=== PATIENT | female | born 1970 | race Caucasian/White ===

== ENCOUNTER 2022-10-03 18:04 | Emergency (ER) | payer OTHER ==
[2022-10-03] MEDS ORDERED: Zofran 4 MG/2 ML VIAL IV ONE (18:37)
[2022-10-03] MEDS ORDERED: Sodium Chloride 0.9% 1000 ML 1,000 ML IV STA (18:37)
[2022-10-03] MEDS ORDERED: Hydromorphone 1 mg/ml Injection IV ONE ×2 (18:37→23:10)
--- NOTE | 2022-10-03 18:38 | ERPHSYRPT ---
- History of Present Illness Time Seen by Provider: 10/03/22 18:33 Source: patient, family Exam Limitations: no limitations Patient Subjective Stated Complaint: Cat bite-back/marimar arm pain Triage Nursing Assessment: Patient brought back to ED per w/c and transferred self to bed. Patient A+O X3. Patient's skin pink, warm and dry. Patient states yesterday on 10/02/2022 around 0200 she got up to use the restroom when her 10 year old cat attacked her. Patient has bites to marimar legs, and left hand. Patient states during the attack she stumbled and fell hitting her marimar arms and head. Patient has bruising to marimar arms and bruising to left christian and left eye. Patient complains of pain 10/10. Physician History: pt was bitten by her cat multiple times a few days ago - cat reported has all its shots . SHe fell striking left orbit and also neck, chest and back and abd - Neuro normal. FUndi benign and no eye symtoms reported - no abrasion of cornea seen on opth exam. TM s nl. WOunds cleansed no sign infections feet, hands / arms, nothing to require sutures ; but will need proph AB Augmentin best choice. discussed script with pt and family and that wish to proceed. ABd tender general. SPine l ad c spine tender, chest anterior and ribs tender. Full ROM all ext without sofia tenderness and NV intact distally. discussed risk and benefit with pt and and they wish to proceed with CT scans. Ordered, Labs CBC, UA, CMP, and CTs head,face, nC L spines and CHest /abd . reviewed readings and discussed with pt and family. Timing/Duration: day(s) Severity: moderate Modifying Factors: Improves With: immobilization, movement Associated Symptoms: abdominal pain, loss of appetite, other (chest and spine tenderness and headache) Allergies/Adverse Reactions: acetaminophen [From Tylenol-Codeine #3] Allergy (Unknown, Verified 10/03/22 18:15) codeine [From Tylenol-Codeine #3] Allergy (Unknown, Verified 10/03/22 18:15) shellfish derived Allergy (Unknown, Verified 10/03/22 18:15) adhesive tape Adverse Reaction (Unknown, Verified 10/03/22 18:15) Home Medications: ALPRAZolam 0.25 MG [xanAX 0.25 MG] 0.5 mg PO UD 09/28/22 [History] Albuterol Sulfate [Proair Digihaler] 1 puff IH QID PRN 09/28/22 [History] Bisacodyl 5 mg [Dulcolax 5 mg] 4 tab PO UD 09/28/22 [History] Dicyclomine HCl 20 mg [Bentyl 20 mg] 1 mg PO QID 09/28/22 [History] Diphenhydramine HCl [Benadryl Allergy] 25 mg PO UD 09/28/22 [History] Guaifenesin [Mucinex] 1 tab PO UD 09/28/22 [History] Iron 65 mg PO DAILY 09/28/22 [History] Levothyroxine Sodium 112 Mcg [Synthroid 112 Mcg] 112 mcg PO DAILY 09/28/22 [History] Loratadine 10 mg [Claritin 10 mg] 10 mg PO DAILY 09/28/22 [History] Metoprolol Tartrate 50 mg [Lopressor 50 MG] 50 mg PO BID 09/28/22 [History] Polyethylene Glycol 3350 17 gm [Miralax Powder 17GM PACKET] 1 scoop PO UD 09/28/22 [History] Pregabalin 50 mg [Lyrica 50MG] 50 mg PO BID 09/28/22 [History] Simvastatin 20Mg [Zocor 20Mg] 20 mg PO HS 09/28/22 [History] Tramadol HCl 50 mg [Ultram 50 mg] 50 mg PO BID 09/28/22 [History] Hx Influenza Vaccination/Date Given: No Hx Pneumococcal Vaccination/Date Given: No Immunizations Up to Date: Yes Travel Risk - International Travel Have you traveled outside of the country in past 3 weeks: No - Coronavirus Screening Are you exhibiting any of the following symptoms?: No Close contact with a COVID-19 positive Pt in past 14-21 Days: No - Vaccine Status Have you recieved a Covid-19 vaccination: No - Review of Systems Constitutional: No Fever, No Chills Eyes: No Symptoms Ears, Nose, & Throat: No Symptoms Respiratory: No Cough, No Dyspnea Cardiac: Other (chest wall tenderness), No Chest Pain, No Edema, No Syncope Abdominal/Gastrointestinal: Abdominal Pain, Nausea, Appetite Changes, No Vomiting, No Diarrhea Genitourinary Symptoms: No Dysuria Musculoskeletal: Back Pain, Neck Pain, Fall, Injury Skin: Other (bites), No Rash Neurological: No Dizziness, No Focal Weakness, No Sensory Changes Psychological: No Symptoms Endocrine: No Symptoms Hematologic/Lymphatic: No Symptoms Immunological/Allergic: No Symptoms All Other Systems: Reviewed and Negative - Past Medical History Pertinent Past Medical History: Yes Neurological History: No Pertinent History ENT History: No Pertinent History Cardiac History: No Pertinent History Respiratory History: COPD, Sleep Apnea Endocrine Medical History: No Pertinent History Musculoskeletal History: No Pertinent History GI Medical History: No Pertinent History History: No Pertinent History Psycho-Social History: No Pertinent History Female Reproductive Disorders: No Pertinent History Other Medical History: hx of blood transfusion - Past Surgical History Past Surgical History: Yes Neuro Surgical History: No Pertinent History Cardiac: No Pertinent History Respiratory: No Pertinent History Gastrointestinal: Appendectomy Genitourinary: No Pertinent History Musculoskeletal: No Pertinent History Female Surgical History: No Pertinent History Other Surgical History: thyroidectomy. oopherectomy - Social History Smoking Status: Current every day smoker How long have you smoked: 1 Exposure to second hand smoke: Yes Drug Use: none Patient Lives Alone: No - Nursing Vital Signs Nursing Vital Signs: Initial Vital Signs Temperature 96.9 F 10/03/22 18:18 Pulse Rate 76 10/03/22 18:18 Respiratory Rate 18 10/03/22 18:18 Blood Pressure 179/126 10/03/22 18:18 O2 Sat by Pulse Oximetry 99 10/03/22 18:18 Pain Scale Pain Intensity 5 - Physical Exam General Appearance: no apparent distress, alert Eye Exam: PERRL/EOMI, eyes nml inspection, other (tender ecchymotic left orbit) Ears, Nose, Throat Exam: normal ENT inspection, TMs normal, pharynx normal, moist mucous membranes Neck Exam: normal inspection, supple, full range of motion, limited range of motion, midline tenderness Respiratory Exam: normal breath sounds, lungs clear, airway intact, other (tender chest ant and posterior), No respiratory distress Cardiovascular Exam: regular rate/rhythm, normal heart sounds, normal peripheral pulses Gastrointestinal/Abdomen Exam: soft, normal bowel sounds, tenderness, guarding, No mass Pelvic Exam: deferred Rectal Exam: deferred Back Exam: normal inspection, normal range of motion, No CVA tenderness, No vertebral tenderness Extremity Exam: normal inspection, normal range of motion, pelvis stable Neurologic Exam: alert, oriented x 3, cooperative, normal mood/affect, nml cerebellar function, nml station & gait, sensation nml, No motor deficits, No sensory deficit, No disoriented, No confusion, No intoxicated appearance, No motor weakness, No facial droop, No slurred speech Skin Exam: normal color, warm, dry, No rash Lymphatic Exam: No adenopathy SpO2 Interpretation: normal SpO2: 99 O2 Delivery: Room Air - Course Nursing assessment & vital signs reviewed: Yes - CT Exams Abdomen/Pelvis CT Interpretation: Tele-radiologist Report, No appendicitis Head CT Interpretation: Tele-radiologist Report, Other (sinus mastoid dx ) Cervical Spine CT Interpretation: Tele-radiologist Report, No Fracture Lumbar Spine CT Interpretation: Tele-radiologist Report, Fracture (L1 compression) Chest CT Interpretation: Tele-radiologist Report, Other (CAD, Right clav Fx) Ordered Tests: Active Orders 24 hr Category Date Time Status IV Insertion STAT Care 10/03/22 18:37 Active ABDOMEN AND PELVIS W/0 CONTRAS [CT] Stat Exams 10/03/22 18:33 Completed CERVICAL SPINE WO CONTRAST [CT] Stat Exams 10/03/22 18:35 Completed CHEST WITHOUT CONTRAST [CT] Stat Exams 10/03/22 18:34 Completed FACIAL BONES WO CONTRAST [CT] Stat Exams 10/03/22 18:35 Completed HEAD WITHOUT CONTRAST [CT] Stat Exams 10/03/22 18:34 Completed LUMBAR SPINE W/O [CT] Stat Exams 10/03/22 18:36 Completed CBC W DIFF Stat Lab 10/03/22 18:57 Completed CMP Stat Lab 10/03/22 18:57 Completed CULTURE,URINE Stat Lab 10/03/22 20:05 Received HCG QUALITATIVE,SERUM Stat Lab 10/03/22 18:57 Completed UA W/RFX UR CULTURE Stat Lab 10/03/22 20:05 Completed Medication Summary Discontinued Medications Generic Name Dose Route Start Last Admin Trade Name Freq PRN Reason Stop Dose Admin Amoxicillin/Clavulanate Potassium 875 mg 10/03/22 23:02 Amox Tr/Potassium Clavulanate 875 Mg Tablet PO 10/03/22 23:03 STAT ONE Diphtheria/Tetanus/Acell Pertussis 0.5 ml 10/03/22 18:44 10/03/22 19:11 Tdap --Diph,Pertuss(Acell),Tet Vac/Pf 0.5 Ml Vial IM 10/03/22 18:45 0.5 ml .ONCE ONE Administration Diphtheria/Tetanus/Acell Pertussis Confirm 10/03/22 19:02 Tdap --Diph,Pertuss(Acell),Tet Vac/Pf 0.5 Ml Vial Administered 10/03/22 19:03 Dose 0.5 ml IM .STK-MED ONE Hydromorphone HCl 1 mg 10/03/22 18:37 10/03/22 19:10 Hydromorphone 1 Mg/1ml Inj 1 Mg/Ml Syringe IV 10/03/22 18:38 1 mg STAT ONE Administration Hydromorphone HCl Confirm 10/03/22 19:01 Hydromorphone 1 Mg/1ml Inj 1 Mg/Ml Syringe Administered 10/03/22 19:02 Dose 1 mg .ROUTE .STK-MED ONE Sodium Chloride 1,000 mls @ 999 mls/hr 10/03/22 18:37 10/03/22 20:24 Sodium Chloride 0.9% 1000 Ml IV 10/03/22 19:37 Infused .Q1H1M STA Infusion Sodium Chloride Confirm 10/03/22 19:01 Sodium Chloride 0.9% 1000 Ml Administered 10/03/22 19:02 Dose 1,000 mls @ ud .ROUTE .STK-MED ONE Ketorolac Tromethamine 60 mg 10/03/22 23:00 10/03/22 23:10 Ketorolac Tromethamine 30 Mg/Ml Inj IM 10/03/22 23:01 Not Given STAT ONE Ondansetron HCl 4 mg 10/03/22 18:37 10/03/22 19:07 Ondansetron Hcl 4 Mg/2 Ml Vial IV 10/03/22 18:38 4 mg STAT ONE Administration Ondansetron HCl Confirm 10/03/22 19:01 Ondansetron Hcl 4 Mg/2 Ml Vial Administered 10/03/22 19:02 Dose 4 mg .ROUTE .STK-MED ONE Lab/Rad Data: Laboratory Result Diagrams 10/03/22 18:57 10/03/22 18:57 Laboratory Results 10/03/22 10/03/22 10/03/22 Range/Units 20:05 18:57 18:57 WBC (4.0-10.5) x10^3/uL RBC (4.1-5.4) x10^6/uL Hgb (12.0-16.0) g/dL Hct (35-47) % MCV (78-100) fL MCH (26-32) pg MCHC (32-36) g/dL RDW (11.5-14.0) % Plt Count (150-450) x10^3/uL MPV (7.5-11.0) fL Gran % (36.0-66.0) % Immature Gran % (Auto) (0.00-0.4) % Nucleat RBC Rel Count (0.00-0.1) % Eos # (Auto) (0-0.5) x10^3/uL Immature Gran # (Auto) (0.00-0.03) x10^3u/L Absolute Lymphs (auto) (1.0-4.6) x10^3/uL Absolute Monos (auto) (0.0-1.3) x10^3/uL Absolute Nucleated RBC (0.00-0.01) x10^3u/L Lymphocytes % (24.0-44.0) % Monocytes % (0.0-12.0) % Eosinophils % (0.00-5.0) % Basophils % (0.0-0.4) % Absolute Granulocytes (1.4-6.9) x10^3/uL Basophils # (0-0.4) x10^3/uL Sodium 137 (137-145) mmol/L Potassium 4.1 (3.5-5.1) mmol/L Chloride 105 (98-107) mmol/L Carbon Dioxide 27 (22-30) mmol/L Anion Gap 9.5 (5-15) MEQ/L BUN 6 L (7-17) mg/dL Creatinine 0.57 (0.52-1.04) mg/dL Estimated GFR > 60.0 ML/MIN Glucose 109 H (74-106) mg/dL Calcium 8.8 (8.4-10.2) mg/dL Total Bilirubin 1.10 (0.2-1.3) mg/dL AST 39 H (14-36) U/L ALT 19 (0-35) U/L Alkaline Phosphatase 115 (38-126) U/L Serum Total Protein 7.2 (6.3-8.2) g/dL Albumin 3.8 (3.5-5.0) g/dL Serum , Qual NEGATIVE (Negative) Urine Color Yellow (Yellow) Urine Appearance Cloudy A (Clear) Urine pH 8.0 (4.6-8.0) Ur Specific Gibbon <=1.005 (1.005-1.030) Urine Protein Negative (Negative) Urine Glucose (UA) Negative (Negative) mg/dL Urine Ketones Negative (Negative) Urine Blood Negative (Negative) Urine Nitrite Positive A (Negative) Urine Bilirubin Negative (Negative) Urine Urobilinogen 1.0 A (0.2) mg/dL Ur Leukocyte Esterase Large A (Negative) U Hyaline Cast (Auto) NONE SEEN (0-2) /LPF Urine Microscopic RBC 0-2 (0-5) /HPF Urine Microscopic WBC 51-100 A (0-5) /HPF Ur Epithelial Cells None Seen (None Seen) /HPF Urine Bacteria Many A (None Seen) /HPF Urine Culture Reflexed YES (NO) 10/03/22 Range/Units 18:57 WBC 6.9 (4.0-10.5) x10^3/uL RBC 4.17 (4.1-5.4) x10^6/uL Hgb 14.4 (12.0-16.0) g/dL Hct 44.1 (35-47) % MCV 105.8 H (78-100) fL MCH 34.5 H (26-32) pg MCHC 32.7 (32-36) g/dL RDW 13.1 (11.5-14.0) % Plt Count 119 L (150-450) x10^3/uL MPV 12.1 H (7.5-11.0) fL Gran % 67.5 H (36.0-66.0) % Immature Gran % (Auto) 0.4 (0.00-0.4) % Nucleat RBC Rel Count 0.0 (0.00-0.1) % Eos # (Auto) 0.09 (0-0.5) x10^3/uL Immature Gran # (Auto) 0.03 (0.00-0.03) x10^3u/L Absolute Lymphs (auto) 1.65 (1.0-4.6) x10^3/uL Absolute Monos (auto) 0.42 (0.0-1.3) x10^3/uL Absolute Nucleated RBC 0.00 (0.00-0.01) x10^3u/L Lymphocytes % 24.1 (24.0-44.0) % Monocytes % 6.1 (0.0-12.0) % Eosinophils % 1.3 (0.00-5.0) % Basophils % 0.6 (0.0-0.4) % Absolute Granulocytes 4.62 (1.4-6.9) x10^3/uL Basophils # 0.04 (0-0.4) x10^3/uL Sodium (137-145) mmol/L Potassium (3.5-5.1) mmol/L Chloride (98-107) mmol/L Carbon Dioxide (22-30) mmol/L Anion Gap (5-15) MEQ/L BUN (7-17) mg/dL Creatinine (0.52-1.04) mg/dL Estimated GFR ML/MIN Glucose (74-106) mg/dL Calcium (8.4-10.2) mg/dL Total Bilirubin (0.2-1.3) mg/dL AST (14-36) U/L ALT (0-35) U/L Alkaline Phosphatase (38-126) U/L Serum Total Protein (6.3-8.2) g/dL Albumin (3.5-5.0) g/dL Serum , Qual (Negative) Urine Color (Yellow) Urine Appearance (Clear) Urine pH (4.6-8.0) Ur Specific Gibbon (1.005-1.030) Urine Protein (Negative) Urine Glucose (UA) (Negative) mg/dL Urine Ketones (Negative) Urine Blood (Negative) Urine Nitrite (Negative) Urine Bilirubin (Negative) Urine Urobilinogen (0.2) mg/dL Ur Leukocyte Esterase (Negative) U Hyaline Cast (Auto) (0-2) /LPF Urine Microscopic RBC (0-5) /HPF Urine Microscopic WBC (0-5) /HPF Ur Epithelial Cells (None Seen) /HPF Urine Bacteria (None Seen) /HPF Urine Culture Reflexed (NO) - Progress Progress: improved, re-examined Progress Note: 10/03/22 23:14 discussed findings with pt and and that f/u with orth will be needed - the right clavicle is nontender adn old fx. SHe will be her tramadol tomorrow for pain . discussed Tx of UTI with augmentin also to cover cat bites with and pt and they wish to proceed. THey are also advised to f/u with pmd for CAD and vascular dx seen on CT. Counseled pt/family regarding: lab results, diagnosis, need for follow-up, rad results - Departure Departure Disposition: Home Clinical Impression: L1 vertebral fracture, UTI (urinary tract infection), Cat bite, CAD coincidental Condition: Good Critical Care Time: No Referrals: ERIBERTO BRIGGS, [employer] [[employer] STAFF] - Follow up/PCP as directed Instructions: Animal Bites (DC), Rabies (DC), Urinary Tract Infection, Adult (DC), Coronary Artery Disease (DC), Vertebral Compression Fracture (DC) Additional Instructions: followup with animal control for the status of your cat which should be observed in case of rabies these next 2 weeks , although there is low risk if it was vaccinated - so also check those records, since it likely was accomplished by the vet doing the procedures. See your DrIsauro for ortho and physical therapy referral for your Lumbar vertebral fracture. Followup with your DrIsauro for your calcified coronary arteries and aorta which place your at risk for these diseases. Return meantime if any symptoms of concern. bowel or bladder symptoms, vomiting, numbness of legs or other concerns. followup your blood pressure with your Dr. Prescriptions: Amox Tr/Potass Clav. 875 mg [Augmentin 875-125 Tablet] 875 mg PO BID #20 tablet
[2022-10-03] MEDS ORDERED: Adacel Vial IM ONE ×2 (18:44→19:02)
[2022-10-03] MEDS ORDERED: Zofran 4 MG/2 ML VIAL ONE (19:01)
[2022-10-03] MEDS ORDERED: Hydromorphone 1 mg/ml Injection ONE ×2 (19:01→23:14)
[2022-10-03] MEDS ORDERED: Sodium Chloride 0.9% 1000 ML 1,000 ML ONE (19:01)
[2022-10-03 19:02] LABS: Absolute Neutrophil Ct (ANC) 4.62 x10^3/uL (1.4-6.9); BASOPHIL % 0.6 % (0.0-0.4); Basophil (Absolute #) 0.04 x10^3/uL (0-0.4); Eosinophil % 1.3 % (0.00-5.0); Eosinophil (Absolute #) 0.09 x10^3/uL (0-0.5); Hematocrit 44.1 % (35-47); Hemoglobin 14.4 g/dL (12.0-16.0); IMMATURE GRAN # 0.03 x10^3u/L (0.00-0.03); IMMATURE GRAN % 0.4 % (0.00-0.4); Lymphocyte (Absolute #) 1.65 x10^3/uL (1.0-4.6); Lymphocytes % 24.1 % (24.0-44.0); Mean Cell Volume 105.8 fL (78-100); Mean Corpuscular Hemoglobin 34.5 pg (26-32); Mean Corpuscular Hgb Concent. 32.7 g/dL (32-36); Mean Platelet Volume 12.1 fL (7.5-11.0); Monocyte (Absolute #) 0.42 x10^3/uL (0.0-1.3); Monocytes % 6.1 % (0.0-12.0); Neutrophil % 67.5 % (36.0-66.0); Platelet Count 119 x10^3/uL (150-450); Red Blood Count 4.17 x10^6/uL (4.1-5.4); Red Cell Distribution Width 13.1 % (11.5-14.0); White Blood Count 6.9 x10^3/uL (4.0-10.5)
[2022-10-03 19:15] LABS: ALBUMIN 3.8 g/dL (3.5-5.0); ALKALINE PHOSPHATASE 115 U/L (38-126); ANION GAP 9.5 MEQ/L (5-15); BLOOD UREA NITROGEN 6 mg/dL (7-17); CHLORIDE 105 mmol/L (98-107); Calcium 8.8 mg/dL (8.4-10.2); Carbon Dioxide 27 mmol/L (22-30); Creatinine 1 0.57 mg/dL (0.52-1.04); EST GLOMERULAR FILTRATION RATE > 60.0 ML/MIN; Glucose 109 mg/dL (74-106); Potassium 4.1 mmol/L (3.5-5.1); SGOT/AST 39 U/L (14-36); SGPT/ALT 19 U/L (0-35); SODIUM 137 mmol/L (137-145); Total Protein 7.2 g/dL (6.3-8.2)
--- NOTE | 2022-10-03 21:36 | XRAY ---
Indication: Left orbital trauma following fall. Multiple contiguous axial images obtained through the head without contrast. Comparison: None Age-appropriate global atrophy. No acute intracranial hemorrhage, abnormal extra-axial fluid collection, or mass effect. Fourth ventricle is midline without hydrocephalus. Bony calvarium intact. Partial opacification mastoid air cells, left greater than right presumed inflammatory. Visualized paranasal sinuses are clear. Impression: Bilateral mastoiditis. Remaining CT head without contrast exam is negative. Comment: Preliminary interpretation made by [facility]. No critical discrepancy.
--- NOTE | 2022-10-03 21:38 | XRAY ---
Indication: Left orbital trauma following fall. Multiple contiguous axial images obtained through the facial bones. Sagittal and coronal reformatted images obtained. Comparison: None Patient is edentulous. No acute fracture, suspicious bony lesions, or radiopaque foreign body. Orbits including roof, rivera, and floors intact. Paranasal sinuses and nasal passages are clear. Mild nasal septal deviation to the left. Visualized noncontrasted soft tissues are unremarkable. CT head and CT cervical spine reported separately. Impression: Negative CT facial bones. Comment: Preliminary interpretation made by [facility]. No critical discrepancy.
--- NOTE | 2022-10-03 21:40 | XRAY ---
Indication: Pain and tenderness following fall. Multiple contiguous axial images obtained through the cervical spine. Sagittal and coronal reformatted images obtained. Comparison: None Axial images negative for acute fracture, suspicious bony lesions, or spinal canal stenosis. Facets are symmetric. Sagittal and coronal reformatted images demonstrate normal alignment with vertebral body heights/disc spaces maintained. No acute compression fracture, subluxation, or jumped facet. Normal appearing craniocervical junction. Visualized noncontrasted soft tissues demonstrates minimal scattered carotid calcifications bilaterally. CT head, CT facial bones, and CT chest reported separately. Impression: Negative CT cervical spine. Comment: Preliminary interpretation made by [facility]. No critical discrepancy.
--- NOTE | 2022-10-03 21:42 | XRAY ---
Indication: Pain following fall. Multiple contiguous axial images obtained through the chest without contrast. Comparison: None Lungs demonstrates mild bilateral dependent atelectasis and tiny biapical subpleural cystic changes. No suspicious pulmonary mass, infiltrate, effusion, or pneumothorax. Heart not enlarged with scattered coronary calcifications. Aorta mildly arteriosclerotic without aneurysm. No pathologic mediastinal lymphadenopathy. Small hiatal hernia. Bony thorax demonstrates minimal degenerative changes throughout the spine and old nonunited right clavicle shaft fracture. CT cervical spine and CT abdomen/pelvis reported separately. Impression: 1. Small hiatal hernia, arteriosclerotic disease, biapical subpleural cystic changes, L2 level degenerative spondylosis, and old right clavicle fracture. 2. Remaining CT chest without contrast exam is negative. Comment: Preliminary interpretation made by [facility]. No critical discrepancy.
--- NOTE | 2022-10-03 21:44 | XRAY ---
Indication: Pain following fall. Multiple contiguous axial images obtained through the abdomen and pelvis without contrast. Comparison: None CT chest reported separately. Noncontrasted stomach and bowel loops appear nonobstructed. Previous appendectomy and hysterectomy reported. 19.9 cm fatty hepatomegaly. No free fluid/air. Remaining liver, gallbladder, pancreas, spleen, adrenal glands, kidneys, ureters, and bladder are unremarkable for noncontrast exam. Moderate scattered aortoiliac calcifications without AAA. Osseous structures demonstrates L1 superior endplate fracture with less than 25% height loss. Impression: 1. L1 endplate fracture without spinal canal or foraminal encroachment. 2. Fatty hepatomegaly, and arteriosclerotic disease. 3. Remaining CT abdomen/pelvis without contrast exam is negative. Comment: Preliminary interpretation made by [facility]. No critical discrepancy.
--- NOTE | 2022-10-03 21:48 | XRAY ---
Indication: Pain following fall. Multiple contiguous axial images obtained through the lumbar spine. Sagittal and coronal reformatted images obtained. Comparison: None Axial images negative for large disc herniation or spinal canal stenosis. Facets are symmetric. Sagittal and coronal reformatted images demonstrates normal alignment. L1 superior endplate fracture with less than 25% height loss. Remaining vertebral body heights/disc spaces maintained. CT abdomen/pelvis reported separately. Impression: L1 endplate fracture without spinal canal or foraminal encroachment. Comment: Preliminary interpretation made by [facility]. No critical discrepancy.
[2022-10-03 21:52] LABS: Appearance Cloudy (Clear); Bacteria Many /HPF (None Seen); Bilirubin Negative (Negative); Blood Negative (Negative); Epithelial Cells None Seen /HPF (None Seen); Glucose, Urine Negative (Negative); Hyaline Casts NONE SEEN /LPF (0-2); Ketones Negative (Negative); Leukocyte Esterase Large (Negative); Nitrite Positive (Negative); Protein,Urine Dip Negative (Negative); RBC 0-2 /HPF (0-5); Specific Gravity <=1.005 (1.005-1.030); WBC 51-100 /HPF (0-5)
[2022-10-03 21:56] LABS: ADD URINE CULTURE? YES (NO)
[2022-10-03] MEDS ORDERED: TORAdol 30 mg Injection IM ONE (23:00)
[2022-10-03] MEDS ORDERED: Augmentin 875-125 Tablet PO ONE (23:02)
[2022-10-03] MEDS ORDERED: Augmentin 875-125 Tablet ONE (23:14)
[2022-10-03 23:51] VITALS: BP 162/97; PULSE 70; O2SAT 98
== END 2022-10-03 23:51 | disposition home or self-care (01) ==
LOC: ED 18:04
DX: S32.010A Wedge compression fracture of first lumbar vertebra, initial encounter for closed fracture (principal); W01.10XA Fall on same level from slipping, tripping and stumbling with subsequent striking against unspecified object, initial encounter; Y92.003 Bedroom of unspecified non-institutional (private) residence as the place of occurrence of the external cause; S60.572A Other superficial bite of hand of left hand, initial encounter; S80.872A Other superficial bite, left lower leg, initial encounter; S80.871A Other superficial bite, right lower leg, initial encounter; W55.01XA Bitten by cat, initial encounter; N39.0 Urinary tract infection, site not specified; I25.10 Atherosclerotic heart disease of native coronary artery without angina pectoris; R51.9 Headache, unspecified; M54.2 Cervicalgia; R07.89 Other chest pain; M54.6 Pain in thoracic spine; R10.9 Unspecified abdominal pain; Z79.891 Long term (current) use of opiate analgesic; Z79.899 Other long term (current) drug therapy; Z28.310 Unvaccinated for COVID-19; Z72.0 Tobacco use
CPT/HCPCS: 36000; 36415; 70450; 70486; 71250; 72125; 72131; 74176; 80053; 81001; 84703; 85025; 87077; 87086; 87186; 90471; 90715; 96360; 96374; 96375; 96376; 99284; J1170; J2405; A9270-GY

== ENCOUNTER 2023-09-14 05:58 | Day surgery (SDC) | payer OTHER ==
[2023-09-14 06:15] VITALS: RESP 18
[2023-09-14] MEDS ORDERED: Lactated Ringers 1,000 ML IV SCH (06:30)
[2023-09-14] MEDS ORDERED: DIPRIVAN 200 MG/20 ML IV ONE ×2 (07:32→07:44)
[2023-09-14] MEDS ORDERED: Versed 2 MG/2 ML Injection ONE (07:32)
[2023-09-14] MEDS ORDERED: Xylocaine-Mpf 2% 5 Ml Vial ONE (07:32)
[2023-09-14 08:30] VITALS: O2SAT 97
--- NOTE | 2023-09-14 08:38 | OP ---
SURGERY DATE/TIME: 09/14/2023 0736 PREOPERATIVE DIAGNOSIS: Rectal bleeding. POSTOPERATIVE DIAGNOSIS: A 1.5 cm polyp in the ascending colon and approximately 3 cm pedunculated polyp in the sigmoid colon. PROCEDURE: Colonoscopy with polypectomy. SURGEON: Dr. White. ANESTHESIA: Medications given by anesthesia department. HISTORY: The patient is a 52-year-old white female who presents now with rectal bleeding. The patient reports that she has never had a colonoscopy before. The patient is felt the need to have endoscopic evaluation. She was appraised of the risks of the procedure including the risk of perforation, phlebitis, untoward reaction to medication, bleeding and missed lesions. The patient verbalized her understanding and desired to have the procedure performed. DESCRIPTION OF PROCEDURE: The patient was given the medications by the anesthesia department. She had continuous pulse oximetry, ECG monitoring and intermittent blood pressure monitoring during the examination. She was placed in the left lateral decubitus position. A digital rectal examination was performed and revealed normal anal sphincter tone and no masses. The flexible Olympus pediatric colonoscope was used to intubate the rectum. A view of the colon was developed sequentially to the cecum. There was noted to be a 1.5 cm polyp that was sessile in the right side of the colon which was removed using polypectomy snare and electrocautery to completely remove the lesion and it was retrieved for pathologic evaluation. Upon further inspection of the colon, there was a very large polyp noted in the sigmoid colon which was on a long pedunculated stalk measuring approximately 3 cm in diameter. It was felt at this time due to very large nature of the lesion and with no surgical back up today, it was felt that it would be better served for this patient to refer her on to the local surgeons to have them remove the polyp. With no further polyps noted, the scope was removed from the patient who tolerated the procedure well and was sent back to OP recovery in good condition. The prep was noted to be fair to good.
[2023-09-14 08:43] VITALS: BP 116/68; PULSE 60; TEMP 98.1
== END 2023-09-14 08:50 | disposition home or self-care (01) ==
LOC: SDC 05:58
PROVIDERS: ATTEND Family Medicine
DX: D12.2 Benign neoplasm of ascending colon (principal); K62.5 Hemorrhage of anus and rectum
CPT/HCPCS: J2250; J2704

== ENCOUNTER 2023-11-01 11:30 | Day surgery (SDC) | payer OTHER ==
--- NOTE | 2023-11-01 09:57 | HP ---
DATE OF SURGERY: 11/01/2023 HISTORY OF PRESENT ILLNESS: The patient is a 53-year-old with history of large polyp on Dr. White's endoscopy and referred for repeat colonoscopy. She has history of rectal bleeding, some pressure with bowel movements. Family history is unknown. PAST MEDICAL HISTORY: Hypertension, chronic obstructive pulmonary disease, heartburn, arthritis, bipolar, headaches, migraine, depression, hyperlipidemia, hypothyroidism, gynecologic cancer, anxiety, PAST SURGICAL HISTORY: Appendectomy. Hysterectomy. Cholecystectomy. Thyroidectomy. Bilateral tubal. MEDICATIONS: Pregabalin, tramadol, levothyroxine, paroxetine, albuterol, alprazolam, simvastatin, metoprolol. ALLERGIES: BENADRYL. CODEINE. SHELLFISH. ADHESIVE TAPE. FAMILY HISTORY: Unknown. SOCIAL HISTORY: Current smoking, occasional alcohol use no abuse. REVIEW OF SYSTEMS: Twelve systems reviewed. No chest pain or palpitations. Multiple medical problems as noted above. PHYSICAL EXAMINATION: Height 5 feet 1 inch. BMI 23.62. GENERAL: No acute distress. HEENT: Sclerae nonicteric. EOMI. Oral mucous membranes moist. NECK: No JVD. CHEST: Equal excursion, nonlabored breathing. CVS: Regular rate and rhythm. ABDOMEN: Soft. EXTREMITIES: No significant edema. NEURO: Alert, moving extremities symmetrically. RECTAL: Deferred timed to endoscopy exam. PSYCH: Appropriate mood and affect. SKIN: Dry. IMPRESSION: She had a large polyp needs repeat colonoscopy with attempt at endoscopic removal and tattooing the location. Risks explained in detail including but not limited to bleeding or infection, risk of bowel injury possibly requiring open procedure, risk of incomplete exam possibly requiring barium enema, other studies or procedures, general risk of bowel prep or sedation but not limited to, will proceed with outpatient under MAC anesthesia colonoscopy. Otherwise, continue medication for bipolar, depression, chronic obstructive pulmonary disease, thyroid disease, hypertension, anxiety, arthritis. Hold thinners preoperatively.
[2023-11-01] MEDS: Lactated Ringers 1,000 ML IV SCH (12:23)
[2023-11-01] MEDS ORDERED: DIPRIVAN 200 MG/20 ML IV ONE ×2 (13:17→13:39)
[2023-11-01] MEDS ORDERED: Versed 2 MG/2 ML Injection ONE (13:17)
[2023-11-01] MEDS ORDERED: MORPHINE SULFATE 2 MG INJ ONE (14:18)
[2023-11-01 14:48] VITALS: RESP 16; O2SAT 97
[2023-11-01 15:01] VITALS: BP 141/89; PULSE 69; TEMP 97.7
--- NOTE | 2023-11-01 15:08 | OP ---
SURGERY DATE/TIME: 11/01/2023 1316 PREOPERATIVE DIAGNOSIS: History of large distal sigmoid colon polyp on recent colonoscopy by Dr. White. POSTOPERATIVE DIAGNOSES: 1) Four small cecal polyps. 2) A 2 cm distal sigmoid colon polyp or polypoid lesion PROCEDURES: 1) Colonoscopy to cecum. 2) Hot biopsy polypectomy for small sigmoid colon polyp. 3) Hot snare polypectomy of 3 cm polypoid lesion or polyp removed in piecemeal fashion with ink spot tattooing base of stalk. SURGEON: Dr. Donell Fields M.D. ANESTHESIA: MAC. ESTIMATED BLOOD LOSS: Minimal. INDICATIONS: As noted above. Risks and benefits explained in detail but not limited to and consent obtained. DESCRIPTION OF PROCEDURE AND FINDINGS: The patient is taken to the endoscopy room. MAC anesthesia induced. Digital rectal exam did not reveal any rectal masses. Video colonoscope inserted and passed up through the slightly tortuous sigmoid, descending, transverse and ascending colon around to the cecum. There were four small, 1.5 to 2 mm polyps in the cecum removed hot biopsy polypectomy. Good hemostasis noted. The scope is carefully withdrawn over the next 15 minutes taking time to remove this large 3 cm polypoid lesion on a stalk in the sigmoid colon. It was felt as it was on a stalk will try to remove this endoscopically. Initial piece took the top part off to where it could be grasped and an additional snare was placed at its base. The specimen had been retrieved and passed off in pieces. Some ink spot was injected at the base of the stalk 1 cc or so. Otherwise, it appeared to be removed. There did not appear to be obvious residual polyp left at this stalk that had been taken off. It appeared to have adequate hemostasis. The patient tolerated the procedure well. There was no family here to discuss the findings with. I will see her back in the office. She will likely need a follow up short-term colonoscopy in a few months if the path is benign.
== END 2023-11-01 15:10 | disposition home or self-care (01) ==
LOC: SDC 11:30
PROVIDERS: ATTEND Surgery
DX: Z09 Encounter for follow-up examination after completed treatment for conditions other than malignant neoplasm (principal); Z86.010 Personal history of colon polyps; D12.0 Benign neoplasm of cecum; D12.5 Benign neoplasm of sigmoid colon
CPT/HCPCS: 93005; J2250; J2270; J2704

== ENCOUNTER 2024-07-26 13:29 | Day surgery (SDC) | payer OTHER ==
[2024-07-26] MEDS ORDERED: BUPIVACAINE 0.5% VIAL IJ ONE (13:30)
[2024-07-26] MEDS ORDERED: Depo-Medrol 40 MG/ML IM ONE (13:30)
[2024-07-26] MEDS ORDERED: DIPRIVAN 200 MG/20 ML IV ONE (15:48)
--- NOTE | 2024-07-26 16:36 | XRAY ---
Indication: Right knee injection Intraoperative fluoroscopy provided for 4 seconds. Single digital spot image submitted for interpretation demonstrates needle tip projecting over right femur intercondylar notch. Small amount of contrast injected for needle tip placement. Correlate with intraoperative findings/report.
--- NOTE | 2024-07-26 16:36 | XRAY ---
Indication: Left knee injection Intraoperative fluoroscopy provided for 3 seconds. Single digital spot image submitted for interpretation demonstrates needle tip projecting over left femur intercondylar notch. Small amount of contrast injected for needle tip placement. Correlate with intraoperative findings/report.
--- NOTE | 2024-07-26 17:10 | XRAY ---
4 seconds of fluoroscopy was used in surgery for a right intra-articular knee injection.
--- NOTE | 2024-07-26 17:10 | XRAY ---
3 seconds of fluoroscopy was used in surgery for a left intra-articular knee injection.
== END 2024-07-26 16:21 | disposition home or self-care (01) ==
LOC: SDC-PAIN 13:29
PROVIDERS: ATTEND Psychiatry & Neurology Pain Medicine
DX: M17.0 Bilateral primary osteoarthritis of knee (principal)
CPT/HCPCS: 20610; 73560; 77002; J2704; Q9966

== ENCOUNTER 2025-01-18 23:32 | Observation (INO) | payer OTHER ==
[2025-01-18] MEDS ORDERED: Racepinephrine INH Solution 2.25% IH ONE (23:38)
[2025-01-18] MEDS ORDERED: solu-MEDROL ONE (23:52)
[2025-01-18] MEDS ORDERED: Sterile H2O 10 ml IJ ONE (23:52)
[2025-01-18] MEDS ORDERED: Pepcid 20 MG VIAL IV ONE (23:52)
[2025-01-18] MEDS ORDERED: BENADRYL 50 MG/ML ONE (23:52)
[2025-01-18] MEDS: Pepcid 20 MG VIAL IV ONE (23:53)
[2025-01-18] MEDS: BENADRYL 50 MG/ML IV ONE (23:53)
[2025-01-18] MEDS: solu-MEDROL 125 MG, Sterile H2O 10 ml 2 ML IV ONE (23:54)
[2025-01-18] MEDS: DUONEB 0.5-3 MG/3 ml Neb IH ONE (23:54)
[2025-01-18] MEDS: Racepinephrine INH Solution 2.25% IH ONE (23:54)
[2025-01-18] MEDS: Sodium Chloride 3 ML UD NEBULES IH ONE (23:55)
[2025-01-19 00:13] LABS: Absolute Neutrophil Ct (ANC) 8.12 x10^3/uL (1.56-6.13); BASOPHIL % 0.5 % (0.1-1.2); Basophil (Absolute #) 0.07 x10^3/uL (0.01-0.08); Eosinophil % 0.9 % (0.7-5.8); Eosinophil (Absolute #) 0.12 x10^3/uL (0.04-0.36); Hematocrit 43.1 % (34.1-44.9); Hemoglobin 14.5 g/dL (11.2-15.7); IMMATURE GRAN # 0.06 x10^3u/L (0.001-0.031); IMMATURE GRAN % 0.5 % (0.001-0.429); Lymphocyte (Absolute #) 3.73 x10^3/uL (1.18-3.74); Mean Cell Volume 106.7 fL (79.4-94.8); Mean Corpuscular Hemoglobin 35.9 pg (25.6-32.2); Mean Corpuscular Hgb Concent. 33.6 g/dL (32.2-35.5); Mean Platelet Volume 12.1 fL (9.4-12.3); Monocyte (Absolute #) 0.78 x10^3/uL (0.24-0.86); Monocytes % 6.1 % (4.7-12.5); Platelet Count 147 x10^3/uL (182-369); Red Blood Count 4.04 x10^6/uL (3.93-5.22); White Blood Count 12.9 x10^3/uL (3.98-10.04)
[2025-01-19 00:25] LABS: ANION GAP 21.8 MEQ/L (5-15); BILIRUBIN,TOTAL 0.6 mg/dL (0.2-1.3); Creatinine 1 0.59 mg/dL (0.52-1.04); MAGNESIUM 1.9 mg/dL (1.6-2.3); Potassium 3.5 mmol/L (3.5-5.1); Total Protein 6.7 g/dL (6.3-8.2)
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
[2025-01-19] MEDS ORDERED: Sodium Chloride 0.9% 1000 ML 0 ML ONE (00:55)
[2025-01-19] MEDS ORDERED: Sodium Chloride 0.9% 1000 ML 1,000 ML ONE (00:58)
[2025-01-19] MEDS: Sodium Chloride 0.9% 1000 ML 1,000 ML IV STA (00:59)
[2025-01-19] MEDS ORDERED: TYLENOL 325 MG ONE (01:04)
[2025-01-19] MEDS: TYLENOL 325 MG PO STA (01:05)
--- NOTE | 2025-01-19 01:41 | PCM.HP ---
History of Present Illness - Chief Complaint Chief Complaint: COPD exacerbation/stridors Date: 01/19/25 History of Present Illness: Ms. STEWART is a 54 year old female with a past medical history significant for hypertension, hyperlipidemia and COPD who presented to the hospital with complaints of increasing shortness of breath, wheezing and throat pain/swelling for the past 3-4 days. She had recently seen her PCP and started on antibiotics with Mucinex but still felt short of breath. Having some fever/chills. Nonproductive sputum. No sick contacts. She is seen via telehealth where she is resting in bed, awake/alert. Feeling very anxious. - Review of Systems Constitutional: Fever, Chills Ears, Nose, & Throat: No Nose Discharge, No Sinus Drainage Respiratory: Cough, Short Of Breath, Wheezing Cardiac: No Chest Pain, No Edema, No Palpitations Abdominal/Gastrointestinal: No Abdominal Pain, No Nausea, No Vomiting Genitourinary Symptoms: No Dysuria, No Frequency Musculoskeletal: Back Pain Skin: No Rash Neurological: No Focal Weakness, No Gait Changes Psychological: Anxiety Endocrine: No Polyuria, No Polydipsia Hematologic/Lymphatic: No Easy Bleeding Medications & Allergies Home Medications: Home Medication List ALPRAZolam 0.25 MG [xanAX 0.25 MG] 0.5 mg PO BIDPRN PRN 09/28/22 [History Confirmed 01/19/25] Albuterol Sulfate [Proair Digihaler] 1 puff IH QID PRN 09/28/22 [History Confirmed 01/19/25] Levothyroxine Sodium 112 Mcg [Synthroid 112 Mcg] 112 mcg PO DAILY 09/28/22 [History Confirmed 01/19/25] Metoprolol Tartrate 50 mg [Lopressor 50 MG] 50 mg PO BID 09/28/22 [History Confirmed 01/19/25] Pregabalin 50 mg [Lyrica 50MG] 50 mg PO BID 09/28/22 [History Confirmed 01/19/25] Simvastatin 20Mg [Zocor 20Mg] 20 mg PO HS 09/28/22 [History Confirmed 01/19/25] Tramadol HCl 50 mg [Ultram 50 mg] 50 mg PO TIDPRN PRN 09/09/23 [History Confirmed 01/19/25] Diphenhydramine HCl 25 mg [Benadryl 25 mg Capsule] 25 mg PO BID PRN PRN 11/01/23 [History Confirmed 01/19/25] Allergies/Adverse Reactions: Allergies Allergy/AdvReac Type Severity Reaction Status Date / Time codeine Allergy Unknown abdominal Verified 01/18/25 23:39 [From Tylenol-Codeine #3] pain shellfish derived Allergy Unknown Verified 01/18/25 23:39 Latex, Natural Rubber Allergy Blisters Verified 01/18/25 23:39 adhesive tape AdvReac Unknown Verified 01/18/25 23:39 - Past Medical History Past Medical History: Yes Neurological History: No Pertinent History ENT History: No Pertinent History Cardiac History: High Cholesterol, Hypertension Respiratory History: Asthma, COPD, Sleep Apnea Endocrine Medical History: Hypothyroidism Musculoskelatal History: No Pertinent History GI Medical History: No Pertinent History, Irritable Bowel History: No Pertinent History Pyscho-Social History: Anxiety, Depression Reproductive Disorders: Uterine Cancer Comment: hx of blood transfusion - Female History Hx Last Menstrual Period: n/a - Past Surgical History Past Surgical History: Yes Neuro Surgical History: No Pertinent History Cardiac History: No Pertinent History Respiratory Surgery: No Pertinent History GI Surgical History: Appendectomy Genitourinary Surgical Hx: No Pertinent History Musculskeletal Surgical Hx: No Pertinent History Female Surgical History: Hysterectomy, Tubal Ligation Other Surgical History: thyroidectomy. oopherectomyx 1 - Social History Smoking Status: Current every day smoker How long have you smoked: 1 Exposure to second hand smoke: No Alcohol: None Drug Use: none - Social Determinants of Health Will the patient participate in the screening: Yes Do you worry about a steady place to live?: No Do you have any problems with any of the following?: No known problems In the past 12 months,have you had to go without utilities?: No Have you or anyone in your house had to go without enough: No Transportation Issues: No Has anyone in your support network made you feel unsafe?: No - Physical Exam Vital Signs: Vital Signs - 24 hr Temp Pulse Resp BP BP Pulse Ox 01/19/25 01:10 93 L 01/19/25 00:30 78 20 106/70 92 L 01/19/25 00:02 76 22 125/76 92 L 01/18/25 23:45 94 H 20 93 L 01/18/25 23:34 88 18 163/110 94 L 01/18/25 23:33 97 F 101 H 22 163/110 94 L General Appearance: no apparent distress Neurologic Exam: alert Ears, Nose, Throat Exam: moist mucous membranes Neck Exam: non-tender, supple Respiratory Exam: wheezing, No respiratory distress Cardiovascular Exam: regular rate/rhythm Gastrointestinal/Abdomen Exam: soft Extremity Exam: No pedal edema, No swelling Skin Exam: normal color, No rash Results - Labs Lab/Micro Results: Lab Results-Last 24 Hours 01/18/25 01/18/25 01/18/25 Range/Units 00:05 00:07 00:07 WBC 12.9 H (3.98-10.04) x10^3/uL RBC 4.04 (3.93-5.22) x10^6/uL Hgb 14.5 (11.2-15.7) g/dL Hct 43.1 (34.1-44.9) % MCV 106.7 H (79.4-94.8) fL MCH 35.9 H (25.6-32.2) pg MCHC 33.6 (32.2-35.5) g/dL RDW 14.0 (11.7-14.4) % Plt Count 147 L (182-369) x10^3/uL MPV 12.1 (9.4-12.3) fL Gran % 63.0 (34.0-71.1) % Immature Gran % (Auto) 0.5 H (0.001-0.429) % Nucleat RBC Rel Count 0.0 (0.00-0.2) % Eos # (Auto) 0.12 (0.04-0.36) x10^3/uL Immature Gran # (Auto) 0.06 H (0.001-0.031) x10^3u/L Absolute Lymphs (auto) 3.73 (1.18-3.74) x10^3/uL Absolute Monos (auto) 0.78 (0.24-0.86) x10^3/uL Absolute Nucleated RBC 0.00 (0.00-0.012) x10^3u/L Lymphocytes % 29.0 (19.3-51.7) % Monocytes % 6.1 (4.7-12.5) % Eosinophils % 0.9 (0.7-5.8) % Basophils % 0.5 (0.1-1.2) % Absolute Granulocytes 8.12 H (1.56-6.13) x10^3/uL Basophils # 0.07 (0.01-0.08) x10^3/uL Sodium 142 (135-145) mmol/L Potassium 3.5 (3.5-5.1) mmol/L Chloride 104 (98-107) mmol/L Carbon Dioxide 19 L (22-30) mmol/L Anion Gap 21.8 H (5-15) MEQ/L BUN 3 L (7-17) mg/dL Creatinine 0.59 (0.52-1.04) mg/dL Estimated GFR 107.0 ML/MIN Glucose 146 H (74-106) mg/dL Calcium 9.0 (8.4-10.2) mg/dL Magnesium 1.9 (1.6-2.3) mg/dL Total Bilirubin 0.60 (0.2-1.3) mg/dL AST 38 H (14-36) U/L ALT 21 (0-35) U/L Alkaline Phosphatase 117 (38-126) U/L Troponin I (0.000-0.033) ng/mL NT-Pro-B Natriuret Pep 356 (<300) pg/mL Serum Total Protein 6.7 (6.3-8.2) g/dL Albumin 4.0 (3.5-5.0) g/dL 01/18/25 Range/Units 00:07 WBC (3.98-10.04) x10^3/uL RBC (3.93-5.22) x10^6/uL Hgb (11.2-15.7) g/dL Hct (34.1-44.9) % MCV (79.4-94.8) fL MCH (25.6-32.2) pg MCHC (32.2-35.5) g/dL RDW (11.7-14.4) % Plt Count (182-369) x10^3/uL MPV (9.4-12.3) fL Gran % (34.0-71.1) % Immature Gran % (Auto) (0.001-0.429) % Nucleat RBC Rel Count (0.00-0.2) % Eos # (Auto) (0.04-0.36) x10^3/uL Immature Gran # (Auto) (0.001-0.031) x10^3u/L Absolute Lymphs (auto) (1.18-3.74) x10^3/uL Absolute Monos (auto) (0.24-0.86) x10^3/uL Absolute Nucleated RBC (0.00-0.012) x10^3u/L Lymphocytes % (19.3-51.7) % Monocytes % (4.7-12.5) % Eosinophils % (0.7-5.8) % Basophils % (0.1-1.2) % Absolute Granulocytes (1.56-6.13) x10^3/uL Basophils # (0.01-0.08) x10^3/uL Sodium (135-145) mmol/L Potassium (3.5-5.1) mmol/L Chloride (98-107) mmol/L Carbon Dioxide (22-30) mmol/L Anion Gap (5-15) MEQ/L BUN (7-17) mg/dL Creatinine (0.52-1.04) mg/dL Estimated GFR ML/MIN Glucose (74-106) mg/dL Calcium (8.4-10.2) mg/dL Magnesium (1.6-2.3) mg/dL Total Bilirubin (0.2-1.3) mg/dL AST (14-36) U/L ALT (0-35) U/L Alkaline Phosphatase (38-126) U/L Troponin I < 0.012 (0.000-0.033) ng/mL NT-Pro-B Natriuret Pep (<300) pg/mL Serum Total Protein (6.3-8.2) g/dL Albumin (3.5-5.0) g/dL Microbiology 01/18/25 23:38 Blood Culture Gram Stain - Final Blood Not Reportable - Radiology Impressions Radiology Exams & Impressions: Radiology Procedures Category Date Time Status CHEST 1 VIEW (PORTABLE) Stat Exams 01/18/25 23:54 Taken Assessment/Plan (1) COPD exacerbation Current Visit: Yes Status: Acute Assessment & Plan: COPD exacerbation with wheezing, hypoxia 1. Admit to hospital 2. Duonebs, steroids, supplemental oxygen 3. Sputum culture, empiric antibiotics 4. Monitor O2 sats 5. DVT/GI prophylaxis Code(s): J44.1 - CHRONIC OBSTRUCTIVE PULMONARY DISEASE W (ACUTE) EXACERBATION (2) Thrush of mouth and esophagus Current Visit: Yes Status: Acute Assessment & Plan: Having some paul 1. Nystatin 2. Clear liquid diet 3. Monitor symptoms 4. Pain control Code(s): B37.81 - CANDIDAL ESOPHAGITIS; B37.0 - CANDIDAL STOMATITIS (3) Essential (primary) hypertension Current Visit: Yes Status: Acute Assessment & Plan: Blood pressure under fair control 1. Continue bp meds 2. Low Na diet 3. Monitor blood pressure readings Code(s): I10 - ESSENTIAL (PRIMARY) HYPERTENSION (4) Anxiety Current Visit: Yes Status: Acute Code(s): F41.9 - ANXIETY DISORDER, UNSPEC IFIED Telemedicine Encounter - Telemedicine Encounter Telemedicine Encounter: "The entirety of this encounter was performed via Telemedicine" This visit was performed using real-time audio and video connection between my location and thepatients locationwith the assistance of a surrogateat the patients location. Written or verbal consent was obtained from the patient/guardian to perform this [facility]. Any patient questions regarding the telemedicine interaction were answered.
[2025-01-19] MEDS ORDERED: Zofran 4 MG/2 ML VIAL IV PRN (01:46)
[2025-01-19] MEDS: TYLENOL 325 MG PO PRN (02:26)
[2025-01-19] MEDS: xanAX 0.25 MG PO PRN (02:27)
[2025-01-19 04:24] LABS: ALBUMIN 3.4 g/dL (3.5-5.0); ANION GAP 15.2 MEQ/L (5-15); BILIRUBIN,TOTAL 0.5 mg/dL (0.2-1.3); Calcium 8.2 mg/dL (8.4-10.2); Creatinine 1 0.66 mg/dL (0.52-1.04); EST GLOMERULAR FILTRATION RATE 104.2 ML/MIN; Potassium 3.8 mmol/L (3.5-5.1); Total Protein 5.8 g/dL (6.3-8.2)
[2025-01-19 04:26] LABS: Absolute Neutrophil Ct (ANC) 5.07 x10^3/uL (1.56-6.13); BASOPHIL % 0.7 % (0.1-1.2); Basophil (Absolute #) 0.04 x10^3/uL (0.01-0.08); Eosinophil % 0.3 % (0.7-5.8); Eosinophil (Absolute #) 0.02 x10^3/uL (0.04-0.36); Hematocrit 40.3 % (34.1-44.9); Hemoglobin 13.2 g/dL (11.2-15.7); IMMATURE GRAN # 0.03 x10^3u/L (0.001-0.031); IMMATURE GRAN % 0.5 % (0.001-0.429); Lymphocyte (Absolute #) 0.87 x10^3/uL (1.18-3.74); Lymphocytes % 14.2 % (19.3-51.7); Mean Cell Volume 110.4 fL (79.4-94.8); Mean Corpuscular Hemoglobin 36.2 pg (25.6-32.2); Mean Corpuscular Hgb Concent. 32.8 g/dL (32.2-35.5); Mean Platelet Volume 11.6 fL (9.4-12.3); Monocyte (Absolute #) 0.08 x10^3/uL (0.24-0.86); Monocytes % 1.3 % (4.7-12.5); Platelet Count 111 x10^3/uL (182-369); Red Blood Count 3.65 x10^6/uL (3.93-5.22); Red Cell Distribution Width 14.1 % (11.7-14.4); White Blood Count 6.1 x10^3/uL (3.98-10.04)
[2025-01-19] MEDS: DUONEB 0.5-3 MG/3 ml Neb IH SCH (06:38)
[2025-01-19] MEDS ORDERED: xanAX 0.5 MG PO PRN (06:45)
--- NOTE | 2025-01-19 08:50 | XRAY ---
Indication: Short of breath. Comparison: Taken earlier in the day. Portable chest again demonstrates chronic lung markings including minimal left base subsegmental atelectasis/scarring. No focal infiltrate, consolidation, or large effusion. Heart not enlarged. 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 Impression: Nonacute chest with chronic features.
--- NOTE | 2025-01-19 08:53 | PCM.DS ---
Discharge Summary Date of Admission: 01/19/25 01:12 Date of Discharge: 01/19/25 Admitting Physician: DEEPAK DIALLO MD Consults: Consults on Case 01/19/25 02:06 Case Management [employer] Needs Assessment ROUTINE Primary Care Provider: LOU CRISTINA Allergies Allergies codeine [From Tylenol-Codeine #3] Allergy (Unknown, Verified 01/18/25 23:39) abdominal pain shellfish derived Allergy (Unknown, Verified 01/18/25 23:39) Latex, Natural Rubber Allergy (Verified 01/18/25 23:39) Blisters adhesive tape Adverse Reaction (Unknown, Verified 01/18/25 23:39) Hospital Summary - Hospital Course Hospital Course: Ms. Ronaldo danielle is a 54-year-old female with a past medical history significant for chronic obstructive pulmonary disease (COPD), hypertension, and hyperlipidemia who presented to the hospital with a several-day history of worsening shortness of breath, wheezing, and throat pain with associated swelling. She had been evaluated by her primary care provider prior to admission and was prescribed antibiotics and mucolytics (Mucinex); however, her symptoms persisted. She also endorsed subjective fevers, chills, and a nonproductive cough but denied any recent sick contacts. On admission, the patient exhibited clinical signs of an acute COPD exacerbation, including wheezing and hypoxia. She was admitted for inpatient management and initiated on bronchodilator therapy with Duoneb nebulizers, systemic corticosteroids, supplemental oxygen, and empiric antibiotics pending sputum cultures. A chest X-ray demonstrated no acute infiltrates or consolidations but showed chronic changes consistent with COPD. Additionally, she was noted to have oral thrush. Nystatin was initiated. Over the course of her hospital stay, the patient's respiratory status improved significantly. She was weaned back to room air with stable oxygen saturation, reported marked improvement in dyspnea and cough, and her throat discomfort also lessened. At the time of discharge, the patient was clinically stable and requested to return home. She was discharged with instructions to continue Duoneb nebulizer treatments as needed, complete a 5-day course of prednisone 40 mg daily, and follow up with her primary care provider and pulmonology. She was also prescribed oral Nystatin for continued management of candidiasis. Patient on RA at rest on day of discharge. A respiratory therapy evaluation for home oxygen was arranged. Smoking cessation counseling and pulmonary rehabilitation referral were also recommended as part of her long-term COPD management. I spent 35 minutes [id number] with the patient on the day of discharge performing discharge exam, discussing hospital stay and discharge instructions with patient and caregivers, preparation of discharge records, prescriptions & referral forms and addressing any questions/concerns the patient had as documented above. - Vitals & Intake/Output Vital Signs: Vital Signs Temperature 97.5 F 01/19/25 08:00 Pulse Rate 81 01/19/25 08:00 Respiratory Rate 20 01/19/25 08:00 Blood Pressure 103/55 01/19/25 08:00 O2 Sat by Pulse Oximetry 91 L 01/19/25 08:00 Intake & Output: Intake & Output 01/16/25 01/17/25 01/18/25 01/19/25 11:59 11:59 11:59 11:59 Output Total 1400 Balance -1400 Weight 66 kg - Lab Result Diagrams: 01/19/25 04:08 01/19/25 04:08 Lab Results-Last 24 Hrs: Lab Results-Last 24 Hours 01/18/25 01/18/25 01/18/25 Range/Units 00:05 00:07 00:07 WBC 12.9 H (3.98-10.04) x10^3/uL RBC 4.04 (3.93-5.22) x10^6/uL Hgb 14.5 (11.2-15.7) g/dL Hct 43.1 (34.1-44.9) % MCV 106.7 H (79.4-94.8) fL MCH 35.9 H (25.6-32.2) pg MCHC 33.6 (32.2-35.5) g/dL RDW 14.0 (11.7-14.4) % Plt Count 147 L (182-369) x10^3/uL MPV 12.1 (9.4-12.3) fL Gran % 63.0 (34.0-71.1) % Immature Gran % (Auto) 0.5 H (0.001-0.429) % Nucleat RBC Rel Count 0.0 (0.00-0.2) % Eos # (Auto) 0.12 (0.04-0.36) x10^3/uL Immature Gran # (Auto) 0.06 H (0.001-0.031) x10^3u/L Absolute Lymphs (auto) 3.73 (1.18-3.74) x10^3/uL Absolute Monos (auto) 0.78 (0.24-0.86) x10^3/uL Absolute Nucleated RBC 0.00 (0.00-0.012) x10^3u/L Lymphocytes % 29.0 (19.3-51.7) % Monocytes % 6.1 (4.7-12.5) % Eosinophils % 0.9 (0.7-5.8) % Basophils % 0.5 (0.1-1.2) % Absolute Granulocytes 8.12 H (1.56-6.13) x10^3/uL Basophils # 0.07 (0.01-0.08) x10^3/uL Sodium 142 (135-145) mmol/L Potassium 3.5 (3.5-5.1) mmol/L Chloride 104 (98-107) mmol/L Carbon Dioxide 19 L (22-30) mmol/L Anion Gap 21.8 H (5-15) MEQ/L BUN 3 L (7-17) mg/dL Creatinine 0.59 (0.52-1.04) mg/dL Estimated GFR 107.0 ML/MIN Glucose 146 H (74-106) mg/dL Calcium 9.0 (8.4-10.2) mg/dL Magnesium 1.9 (1.6-2.3) mg/dL Total Bilirubin 0.60 (0.2-1.3) mg/dL AST 38 H (14-36) U/L ALT 21 (0-35) U/L Alkaline Phosphatase 117 (38-126) U/L Troponin I (0.000-0.033) ng/mL NT-Pro-B Natriuret Pep 356 (<300) pg/mL Serum Total Protein 6.7 (6.3-8.2) g/dL Albumin 4.0 (3.5-5.0) g/dL 01/18/25 01/19/25 01/19/25 Range/Units 00:07 04:08 04:08 WBC 6.1 (3.98-10.04) x10^3/uL RBC 3.65 L (3.93-5.22) x10^6/uL Hgb 13.2 (11.2-15.7) g/dL Hct 40.3 (34.1-44.9) % MCV 110.4 H (79.4-94.8) fL MCH 36.2 H (25.6-32.2) pg MCHC 32.8 (32.2-35.5) g/dL RDW 14.1 (11.7-14.4) % Plt Count 111 L (182-369) x10^3/uL MPV 11.6 (9.4-12.3) fL Gran % 83.0 H (34.0-71.1) % Immature Gran % (Auto) 0.5 H (0.001-0.429) % Nucleat RBC Rel Count 0.0 (0.00-0.2) % Eos # (Auto) 0.02 L (0.04-0.36) x10^3/uL Immature Gran # (Auto) 0.03 (0.001-0.031) x10^3u/L Absolute Lymphs (auto) 0.87 L (1.18-3.74) x10^3/uL Absolute Monos (auto) 0.08 L (0.24-0.86) x10^3/uL Absolute Nucleated RBC 0.00 (0.00-0.012) x10^3u/L Lymphocytes % 14.2 L (19.3-51.7) % Monocytes % 1.3 L (4.7-12.5) % Eosinophils % 0.3 L (0.7-5.8) % Basophils % 0.7 (0.1-1.2) % Absolute Granulocytes 5.07 (1.56-6.13) x10^3/uL Basophils # 0.04 (0.01-0.08) x10^3/uL Sodium (135-145) mmol/L Potassium (3.5-5.1) mmol/L Chloride (98-107) mmol/L Carbon Dioxide (22-30) mmol/L Anion Gap (5-15) MEQ/L BUN (7-17) mg/dL Creatinine (0.52-1.04) mg/dL Estimated GFR ML/MIN Glucose (74-106) mg/dL Calcium (8.4-10.2) mg/dL Magnesium (1.6-2.3) mg/dL Total Bilirubin (0.2-1.3) mg/dL AST (14-36) U/L ALT (0-35) U/L Alkaline Phosphatase (38-126) U/L Troponin I < 0.012 < 0.012 (0.000-0.033) ng/mL NT-Pro-B Natriuret Pep (<300) pg/mL Serum Total Protein (6.3-8.2) g/dL Albumin (3.5-5.0) g/dL 01/19/25 Range/Units 04:08 WBC (3.98-10.04) x10^3/uL RBC (3.93-5.22) x10^6/uL Hgb (11.2-15.7) g/dL Hct (34.1-44.9) % MCV (79.4-94.8) fL MCH (25.6-32.2) pg MCHC (32.2-35.5) g/dL RDW (11.7-14.4) % Plt Count (182-369) x10^3/uL MPV (9.4-12.3) fL Gran % (34.0-71.1) % Immature Gran % (Auto) (0.001-0.429) % Nucleat RBC Rel Count (0.00-0.2) % Eos # (Auto) (0.04-0.36) x10^3/uL Immature Gran # (Auto) (0.001-0.031) x10^3u/L Absolute Lymphs (auto) (1.18-3.74) x10^3/uL Absolute Monos (auto) (0.24-0.86) x10^3/uL Absolute Nucleated RBC (0.00-0.012) x10^3u/L Lymphocytes % (19.3-51.7) % Monocytes % (4.7-12.5) % Eosinophils % (0.7-5.8) % Basophils % (0.1-1.2) % Absolute Granulocytes (1.56-6.13) x10^3/uL Basophils # (0.01-0.08) x10^3/uL Sodium 142 (135-145) mmol/L Potassium 3.8 (3.5-5.1) mmol/L Chloride 110 H (98-107) mmol/L Carbon Dioxide 21 L (22-30) mmol/L Anion Gap 15.2 H (5-15) MEQ/L BUN 2 L (7-17) mg/dL Creatinine 0.66 (0.52-1.04) mg/dL Estimated GFR 104.2 ML/MIN Glucose 148 H (74-106) mg/dL Calcium 8.2 L (8.4-10.2) mg/dL Magnesium (1.6-2.3) mg/dL Total Bilirubin 0.50 (0.2-1.3) mg/dL AST 31 (14-36) U/L ALT 16 (0-35) U/L Alkaline Phosphatase 115 (38-126) U/L Troponin I (0.000-0.033) ng/mL NT-Pro-B Natriuret Pep (<300) pg/mL Serum Total Protein 5.8 L (6.3-8.2) g/dL Albumin 3.4 L (3.5-5.0) g/dL - Radiology Exams Ordered Rad Exams-Entire Visit: Radiology Procedures Category Date Time Status CHEST 1 VIEW (PORTABLE) Stat Exams 01/18/25 23:54 Taken - Procedures and Test Procedures and Tests throughout Hospitalization: Therapy Orders & Screens 01/18/25 23:55 Respiratory Therapy Assessment UD Comment: 01/19/25 01:46 Respiratory Therapy Consult UD Comment: Reason For Exam: Diagnosis: COPD exacerbation/stridors 01/19/25 06:42 Respiratory Therapy Assessment DAILY Comment: Diagnosis: shortness of breath Discharge Exam General Appearance: no apparent distress Neurologic Exam: alert, oriented x 3, cooperative Eye Exam: PERRL Ears, Nose, Throat Exam: normal ENT inspection Neck Exam: normal inspection Respiratory Exam: diminished breath sounds, wheezing Cardiovascular Exam: regular rate/rhythm, normal heart sounds Gastrointestinal/Abdomen Exam: soft, normal bowel sounds Pelvic Exam: deferred Rectal Exam: deferred Back Exam: normal inspection Extremity Exam: normal inspection Skin Exam: normal color Final Diagnosis/Problem List - Final Discharge Diagnosis/Problem (1) COPD exacerbation Current Visit: Yes Status: Acute Assessment & Plan: -Continue Duoneb (albuterol/ipratropium) nebulizer treatments every 4-6 hours as needed - will arrange for home us -Continue prednisone 40 mg daily for 5 days -Arrange respiratory therapy evaluation for potential home oxygen needs -Reinforce dsmoking cessation counseling -Recommend pulmonary rehabilitation referral as outpatient -Follow up with pulmonology and primary care provider Code(s): J44.1 - CHRONIC OBSTRUCTIVE PULMONARY DISEASE W (ACUTE) EXACERBATION (2) Thrush of mouth and esophagus Current Visit: Yes Status: Acute Assessment & Plan: -Continue oral Nystatin suspension (swish and swallow) as prescribed -Maintain good oral hygiene practices -Advise hydration and soft, bland diet as tolerated -Monitor for persistent dysphagia, odynophagia, or signs of systemic infection -Follow up with primary care provider for reassessment Code(s): B37.81 - CANDIDAL ESOPHAGITIS; B37.0 - CANDIDAL STOMATITIS (3) Anxiety Current Visit: Yes Status: Acute Assessment & Plan: -continue home regimen Code(s): F41.9 - ANXIETY DISORDER, UNSPECIFIED (4) Essential (primary) hypertension Current Visit: Yes Status: Acute Assessment & Plan: -Continue current antihypertensive regimen without changes. - Code(s): I10 - ESSENTIAL (PRIMARY) HYPERTENSION - Discharge Discharge Date: 01/19/25 Disposition: Home, Self-Care Condition: Stable Prescriptions: New Prednisone 20 mg [Deltasone 20 mg] 20 mg PO BID 5 Days #10 tablet Albuterol/Ipratropium 3ml Neb* [DUONEB 0.5-3 MG/3 ml Neb] 3 ml IH Q6HPRN PRN 30 Days #120 amp PRN Reason: Shortness Of Breath/Wheezing Nystatin 60 ml [Nystatin SUSPENSION 60 ML] 5 ml PO QID 10 Days #200 ml Continue Albuterol Sulfate [Proair Digihaler] 1 puff IH QID PRN PRN Reason: Shortness Of Breath ALPRAZolam 0.25 MG [xanAX 0.25 MG] 0.5 mg PO BIDPRN PRN PRN Reason: Anxiety Simvastatin 20Mg [Zocor 20Mg] 20 mg PO HS Pregabalin 50 mg [Lyrica 50MG] 50 mg PO BID Metoprolol Tartrate 50 mg [Lopressor 50 MG] 50 mg PO BID Levothyroxine Sodium 112 Mcg [Synthroid 112 Mcg] 112 mcg PO DAILY Tramadol HCl 50 mg [Ultram 50 mg] 50 mg PO TIDPRN PRN PRN Reason: Pain Diphenhydramine HCl 25 mg [Benadryl 25 mg Capsule] 25 mg PO BID PRN PRN PRN Reason: Allergies Follow up with: LOU CRISTINA [Primary Care Provider, [facility]] - 01/26/25 9:45 am JUS BALES [ACTIVE STAFF, PULMONARY MEDICINE] - 02/08/25 10:30 am Referral Note: Pt to be seen at [facility]
[2025-01-19] MEDS: ROCEPHIN 1 GM / 100 ML NaCl 1 GM/100 ML IVPB IV SCH (10:02)
[2025-01-19] MEDS: Protonix 40MG Tablet PO SCH (10:04)
[2025-01-19] MEDS: Lyrica 50MG PO SCH (10:04)
[2025-01-19] MEDS: SYNTHROID 112 MCG PO SCH (10:04)
[2025-01-19] MEDS: Lopressor 50 MG PO SCH (10:04)
[2025-01-19] MEDS: Nystatin SUSPENSION 60 ML PO SCH (10:06)
[2025-01-19] MEDS: ENOXAPARIN SODIUM SQ SCH (10:09)
[2025-01-19] MEDS: solu-MEDROL 40 MG, Sterile H2O 10 ml 1 ML IV SCH (10:11)
[2025-01-19] MEDS: ZITHROMAX IV*** 500 MG in Sodium Chloride 0.9% 250 ML 250 ML IV SCH (10:16)
[2025-01-19] MEDS: ULTRAM 50 MG PO PRN (10:28)
[2025-01-19 12:30] VITALS: BP 133/62; PULSE 75; RESP 22; TEMP 97.1; O2SAT 92
[2025-01-19] MEDS ORDERED: ZOCOR 20MG PO SCH (22:00)
== END 2025-01-19 12:05 | disposition home or self-care (01) ==
LOC: ED 23:32 → MED SURG 01-19 01:12
PROVIDERS: ADMIT Internal Medicine Nephrology; ATTEND Internal Medicine Nephrology
DX: J44.1 Chronic obstructive pulmonary disease with (acute) exacerbation (principal); I10 Essential (primary) hypertension; E78.5 Hyperlipidemia, unspecified; F17.200 Nicotine dependence, unspecified, uncomplicated; B37.81 Candidal esophagitis; F41.9 Anxiety disorder, unspecified; Z79.899 Other long term (current) drug therapy; Z85.42 Personal history of malignant neoplasm of other parts of uterus
CPT/HCPCS: 36415; 71045; 80053; 83735; 83880; 84484; 85025; 87040; 94640; 94760; 96374; 96375; 99285; Q3014; 93268; J0456; J0696; J1200; J1650; J2919; A9270-GY; G0378